=== PATIENT | male | born 1965 | race Caucasian/White ===

== ENCOUNTER 2022-09-23 08:24 | Outpatient (CLI) | payer OTHER ==
[2022-09-23 09:01] VITALS: BP 118/70
--- NOTE | 2022-09-23 09:01 | SLEEP CARE CONSULTATION ---
Information from patient questionnaire entered by Janeth Taylor. I have reviewed and concur with the information entered by Janeth Taylor. This document represents the service I personally performed and the decisions made by , Trudy Blanchard ARNP. History of Present Illness Service Date and Time: 09/23/2022823 Previous diagnosis: Severe, Obstructive Sleep Apnea-Hypopnea Syndrome AHI: 44.5 (in 2019) Reason for follow up: other (2 MONTH F/U ) Equipment type: CPAP (RESMED Airsense 10 s/u 03/2021) Equipment obtained from: Other ([facility]) Mask style: Full face Mask brand: Resmed (Airfit F30i) Backup mask available: Yes (old mask) Last cushion change: 3 weeks Prior sleep studies: Yes (2019) HPI additional information: VERONICA FERRARA was diagnosed to have severe, AHI 44.5, obstructive sleep apnea- hypopnea syndrome and returned today for CPAP therapy two month follow-up. CPAP Compliance Data - Data Reviewed with Patient Average duration of nightly device use: 2 hours 25 minutes Compliance rate %: 10 (57/60 days used) Current pressure setting (cmH2O): 7-12 (95th avg 9.6, max 10.2) Average residual AHI: 1.3 Central apnea: 0.4 Obstructive apnea: 0.4 Hypopnea: 0.5 Average large leak: 0.5 LPM Subjective Missed days of use due to: reports: mask issues (taking mask off after couple hours, unable to go to sleep again with mask on), travel, other (waking up with leg cramps) Patient concerns: denies: aerophagia, mask discomfort, air blowing in eyes, mask leak noise, condensation in mask/hose, nasal congestion, dry mouth, nose, throat, epistaxis Observed to snore while using device: No Current pressure setting perceived as: comfortable On therapy, patient: reports: sleeping better, awakening more refreshed, being more awake and alert during the day, more rested overall. denies: drowsiness while driving Initial [place] Sleepiness Scale score: 0 (09/23/22) Current [place] Sleepiness Scale score: 0 Allergies and Home Medications Drug allergies reviewed: Yes (NKDA) Home medication list reviewed: Yes (no changes) Review of Systems Review of systems same as previous: Yes (no changes) Physical Exam Vital signs obtained and entered by: JANETH Key MA Blood Pressure: 118/70 (LEFT ARM) Cuff size: regular Heart Rate: 54 O2 Saturation: 98 Height: 6 ft 2 in Weight: 224 lb 6.4 oz Body Mass Index: 28.8 BMI Classification: Overweight Impression and Plan 1. Obstructive Sleep Apnea-Hypopnea Syndrome, severe, with poor treatment compliance and good apnea control. On CPAP therapy, the patient has better sleep quality and is more rested overall. He is liking the ResMed AirFit F30i much better than the F30 he was using previously. He likes to sleep on his side to stomach and this mask is much easier to use and more comfortable. He states he is putting the mask on every night but will wake up after a couple of hours and then not be able to fall asleep with the mask on. He states he gets frustrated about not falling asleep and then will just take it off and go to sleep. He has times when he will wake up with leg cramps but otherwise unknown reasons or the bathroom. He does try to put it on if he takes a nap as well. After some discussion, he states that sometimes he has to get up to stretch his legs to ease the leg cramps and after time is able to lay down with the mask on and go to sleep. He has had some success with being able to fall back to sleep with the mask when he does this. I encouraged him to do the same when he has other wake ups besides the leg cramps. To get out of bed, stretch and readjust his mindset before laying down and trying go back to sleep with the mask on. He voiced understanding and agreement with this plan. Patient feels he is comfortable with the mask and will continue to increase the time in his mask. We discussed follow-ups and he would like to leave this open and come back if needed. I agreed and will follow-up with him next year or sooner if need be. Patient's apnea severity and rationale for treatment to reduce apnea, improve sleep quality and reduce cardiovascular and cerebrovascular events was reviewed. 2. Obesity, unspecified. Currently patients BMI is 28.8. Obesity increases the risk of apnea, CPAP pressure requirements and overall health risks especially cardiovascular and diabetes. Thus patient is advised to lose weight. * Continue auto CPAP pressure at 7-12 cmH2O * Increase compliance by increasing time in mask, keeping on face after night wake ups. * Notify me if snoring with mask or feeling that the pressure is too much or too little * Attempt to lose weight * Call this office if any problems using CPAP * Return for follow up in 1 year, or sooner if concerns arise Counseling Topics: Spare mask, Weight loss health impact Visit Type: In Office Time Spent with Patient (minutes): 23 Provider Statement: I spent 100% of the Face to Face Visit with the patient with greater than 50% spent counseling the patient and coordination of care.
== END 2022-09-23 08:25 | disposition home or self-care (01) ==
LOC: SC 08:24
PROVIDERS: ATTEND Nurse Practitioner Family
DX: G47.33 Obstructive sleep apnea (adult) (pediatric) (principal); E66.3 Overweight; Z68.28 Body mass index [BMI] 28.0-28.9, adult
CPT/HCPCS: 99212; 99213

== ENCOUNTER 2023-06-09 10:05 | Outpatient (CLI) | payer OTHER ==
[2023-06-09 14:40] LABS: BASOPHILS % (AUTO) 0.7 %; EOSINOPHILS # (AUTO) 0.1 10^3/uL (0.0-0.7); HCT - HEMATOCRIT 43.1 % (42.0-52.0); LYMPHOCYTES # (AUTO) 1.6 10^3/uL (1.5-3.5); LYMPHOCYTES % (AUTO) 53.9 %; MEAN CORPUSCULAR HEMOGLOBIN 29.5 pg (27.0-31.0); MEAN CORPUSCULAR HGB CONC 32.5 g/dL (32.0-36.0); MEAN CORPUSCULAR VOLUME 90.9 fL (80.0-94.0); MEAN PLATELET VOLUME 9.8 fL (7.4-11.4); MONOCYTES # (AUTO) 0.4 10^3/uL (0.0-1.0); MONOCYTES % (AUTO) 11.5 %; NEUTROPHILS # (AUTO) 0.9 10^3/uL (1.5-6.6); NEUTROPHILS % (AUTO) 30.2 %; PLT - PLATELET COUNT 275 10^3/uL (130-450); RED BLOOD COUNT 4.74 10^6/uL (4.70-6.10); RED CELL DISTRIBUTION WIDTH 12.6 % (12.0-15.0)
[2023-06-09 15:14] LABS: ALBUMIN 4.4 g/dL (3.2-5.5); ALBUMIN/GLOBULIN RATIO 1.8 (1.0-2.2); ALKALINE PHOSPHATASE 36 IU/L (42-121); ALT ALANINE AMINOTRANSFERASE 18 IU/L (10-60); AST ASPARTATE AMINOTRANSFERASE 14 IU/L (10-42); BILIRUBIN,TOTAL 0.7 mg/dL (0.2-1.0); BUN - BLOOD UREA NITROGEN 12 mg/dL (6-20); CALCIUM 9.2 mg/dL (8.5-10.3); CARBON DIOXIDE - CO2 29 mmol/L (21-32); CHLORIDE 106 mmol/L (101-111); CHOL/HDL RATIO 4.3 (<5.0); CHOLESTEROL 242 mg/dL; CREATININE 0.8 mg/dL (0.6-1.3); GFR - MDRD 100 (>89); GLUCOSE 96 mg/dL (74-104); HDL CHOLESTEROL 56 mg/dL; POTASSIUM 4.4 mmol/L (3.5-4.5); SODIUM 139 mmol/L (135-145); TOTAL PROTEIN 6.8 g/dL (6.4-8.9)
[2023-06-09 15:55] LABS: THYROID STIMULATING HORMONE 1.89 uIU/mL (0.34-5.60)
[2023-06-09 16:28] LABS: LDL CHOLESTEROL,CALCULATED 167 mg/dL; TRIGLYCERIDES 96 mg/dL (48-352); VLDL CHOLESTEROL 19 mg/dL
== END 2023-06-09 10:06 | disposition home or self-care (01) ==
LOC: LAB.S 10:05
PROVIDERS: ATTEND Nurse Practitioner Acute Care
DX: Z12.5 Encounter for screening for malignant neoplasm of prostate (principal); Z13.228 Encounter for screening for other metabolic disorders; Z13.220 Encounter for screening for lipoid disorders; Z13.29 Encounter for screening for other suspected endocrine disorder; Z13.0 Encounter for screening for diseases of the blood and blood-forming organs and certain disorders involving the immune mechanism
CPT/HCPCS: 36415; 80053; 80061; 83721; 84153; 84443; 85025

== ENCOUNTER 2023-09-08 08:27 | Outpatient (CLI) | payer OTHER ==
--- NOTE | 2023-09-08 08:51 | Sleep Patient Instructions ---
Sleep Center Visit Summary - Patient Visit Information Reason for Visit: Annual Visit - Patient Instructions Additional Instructions: You will continue with CPAP therapy with pressure set at 7-12 cmH2O. A supply prescription, including order for a new CPAP will be sent to chosen CPAP supplier. Please call once you get your new device to schedule compliance followup. We encourage you to continue to try to lose weight. Please follow up with the sleep care office one month after obtaining new CPAP. - Clinic Information Contact: [facility] [address] [place] [id number] [email or web address] T: [phone]
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
[2023-09-08 09:08] VITALS: BP 126/90; O2SAT 98
== END 2023-09-08 08:28 | disposition home or self-care (01) ==
LOC: SC 08:27
PROVIDERS: ATTEND Nurse Practitioner Family
DX: G47.33 Obstructive sleep apnea (adult) (pediatric) (principal); E66.3 Overweight; Z68.29 Body mass index [BMI] 29.0-29.9, adult
CPT/HCPCS: 99212; 99213

== ENCOUNTER 2024-04-02 08:51 | Outpatient (CLI) | payer OTHER ==
--- NOTE | 2024-04-02 09:22 | SLEEP CARE CONSULTATION ---
Information from patient questionnaire entered by Margaret Enamorado. I have reviewed and concur with the information entered by Margaret Enamorado. This document represents the service I personally performed and the decisions made by me, Wes Downing MD, [facility]. History of Present Illness Service Date and Time: 04/02/2024 0851 Previous diagnosis: Severe, Obstructive Sleep Apnea-Hypopnea Syndrome AHI: 44.5 (in 2019) Reason for follow up: six month Equipment type: CPAP (RESMED Airsense 10 s/u 03/2021) Equipment obtained from: Other ([facility]) Mask style: Full face Prior sleep studies: Yes (2019) HPI additional information: Mr. Rae was diagnosed to have moderate obstructive sleep apnea-hypopnea syndrome and was seen today via video telemedicine ([facility]) for follow up of CPAP therapy. His sleep study--(a split-night polysomnogram)was performed at [facility] in [facility] on 07/12/2020 (he used to work in the [employer] there). The patient purchased the ResMed AirSense 10 from [employer]. He was fitted with a ResMed F30 full face mask. He uses the device almost every night and all night. The compliance data show usage in 168 out of the past 180 nights, averaging 4.8 hours a night. The > 4 hour compliance rate for the past 30 days is 58%. The residual AHI is 1.3 and average air leak is 1.4 L/minute. He thinks that the current pressure of 7 - 12 cmH2O seems just right. Since he started using the CPAP device he noticed improvement in his sleep quality, and that he wakes up feeling fresher in the morning and more awake/alert during the day. The 90th percentile pressure is 10.5 cmH2O. Sleep Study - Results Prior sleep studies: Yes (2019) CPAP Compliance Data - Data Reviewed with Patient Average duration of nightly device use: 5 h 39 min Compliance rate %: 83 Current pressure setting (cmH2O): 7-12 Average residual AHI: 1.4 Subjective Missed days of use due to: reports: travel (While sailing) Current pressure setting perceived as: comfortable Initial [place] Sleepiness Scale score: 5 (07/23/22) Current [place] Sleepiness Scale score: 2 (04/02/24) Allergies and Home Medications Drug allergies reviewed: Yes Home medication list reviewed: Yes Allergy and home medication list: Allergies No Known Drug Allergies Allergy (Verified 09/06/23 13:24) Review of Systems Review of systems same as previous: Yes Physical Exam Vital signs obtained and entered by: N/A Height: 6 ft 2 in Impression and Plan IMPRESSION: 1. Obstructive Sleep Apnea-Hypopnea Syndrome, moderate (AHI was 19.7, all hypopneas and no apneas), and positional, adequately controlled with the current pressure setting. The patient has slightly [id number] compl iance because he occasionally takes the mask off during the night. No adjustment is necessary today. PLAN: 1. Continue with nasal CPAP therapy with 7 - 12 cm H2O. 2. Return for a follow up in a year or earlier if there is any problem. Follow up with Sleep Care in: 1 year Visit Type: Telehealth Video Video Type: Doximity Patient Location: [facility] Location of Provider: Office Patient agrees and consents to this telehealth visit type: Yes Patient agrees to have their insurance billed: Yes Time Spent with Patient (minutes): 15 Provider Statement: I spent 100% of the Telehealth Video Call with the patient with greater than 50% spent counseling the patient and coordination of care.
== END 2024-04-02 08:52 | disposition home or self-care (01) ==
LOC: SC 08:51
PROVIDERS: ATTEND Internal Medicine Pulmonary Disease
DX: G47.33 Obstructive sleep apnea (adult) (pediatric) (principal)